=== PATIENT | female | born 1980 | race Caucasian/White ===

== ENCOUNTER → 2019-01-13 | Outpatient (CLI) | payer OTHER ==
--- NOTE | 2019-01-13 12:53 | RADIOLOGY REPORT (SQ) ---
EXAM DESCRIPTION: LUMBAR SPINE COMPLETE COMPLETED DATE/TIME: 01/13/2019 10:00 am REASON FOR STUDY: LEFT LUMBAR RADICULOPATHY M54.16 RADICULOPATHY, LUMBAR REGION COMPARISON: None. NUMBER OF VIEWS: Five views including obliques. TECHNIQUE: AP, lateral, oblique, and sacral radiographic images acquired of the lumbar spine. LIMITATIONS: None. FINDINGS: MINERALIZATION: Normal. SEGMENTATION: Normal. No transitional anatomy. ALIGNMENT: Normal. VERTEBRAE: Maintained height. No fracture or worrisome bone lesion. DISCS: T11-12 degenerative disc disease. POSTERIOR ELEMENTS: Pedicles and facets are intact. No pars defect or posterior arch defects. HARDWARE: None in the spine. PARASPINAL SOFT TISSUES: Normal. PELVIS: Intact as visualized. No fractures or worrisome bone lesions. SI joints intact. OTHER: No other significant finding. IMPRESSION: T11-12 degenerative disc disease. Otherwise normal. TECHNICAL DOCUMENTATION: JOB ID: [id number] [employer]- All Rights Reserved Reading location - IP/workstation name: [email or web address]
== END ==
LOC: OD 09:41
PROVIDERS: ATTEND Family Medicine
DX: M51.16 Intervertebral disc disorders with radiculopathy, lumbar region (principal)
CPT/HCPCS: 72110

== ENCOUNTER 2020-08-31 07:30 | Day surgery (SDC) | payer OTHER ==
[~2020-08-31 07:30] MED LIST: CEFAZOLIN 2 GM/D5W RTU 2 GM/50 ML RTUPB IV PRN
[2020-08-31] MEDS ORDERED: COCAINE HCL 4% TOPICAL SOLN 4 ML ONE (08:21)
[2020-08-31] MEDS ORDERED: OXYMETAZOLINE HCL 0.05% NASAL SPRAY 15 ML BOTTLE ONE ×2 (08:21→11:07)
[2020-08-31] MEDS ORDERED: LIDOCAINE 2%/EPINEPHRINE INJ 1.7 ML CARTRIDGE ONE ×2 (08:22→09:00)
[2020-08-31] MEDS ORDERED: FENTANYL CITRATE INJ/PF 250 MCG/5 ML AMPULE ONE (08:25)
[2020-08-31] MEDS ORDERED: MIDAZOLAM 2 MG/2 ML INJ ONE (08:25)
[2020-08-31] MEDS ORDERED: ONDANSETRON HCL INJ/PF 4 MG/2 ML SDV ONE ×2 (08:25→14:11)
[2020-08-31] MEDS ORDERED: NEOSTIGMINE METHYLSULFATE 10 MG/10 ML VIAL ONE (08:25)
[2020-08-31] MEDS ORDERED: SUCCINYLCHOLINE CHLORIDE INJ 200 MG/10 ML VIAL ONE (08:26)
[2020-08-31] MEDS ORDERED: EPHEDRINE SULFATE INJ 50 MG/1 ML AMPULE ONE (08:26)
[2020-08-31] MEDS ORDERED: ROCURONIUM BROMIDE INJ 50 MG/5 ML VIAL IV ONE (08:26)
[2020-08-31] MEDS ORDERED: DEXAMETHASONE SOD PHOSPHATE INJ 4 MG/1 ML VIAL ONE (08:26)
[2020-08-31] MEDS ORDERED: PROPOFOL INJ 200 MG/20 ML VIAL IV ONE (08:26)
[2020-08-31] MEDS ORDERED: POVIDONE-IODINE 5% OPH PREP SOLN 30 ML ONE (08:33)
[2020-08-31] MEDS ORDERED: PROMETHAZINE HCL INJ 25 MG/1 ML VIAL ONE (14:11)
[2020-08-31] MEDS: HYDROMORPHONE HCL INJ/PF 2 MG/ML AMPULE ONE ×2 (14:15→14:35)
--- NOTE | 2020-08-31 14:53 | Operative Report ---
Operative Report-[facility] Operative Report: Date: 31 August 2020 History: 40-year-old female with a history of nasal trauma resulting in external nasal deformity, nasal dyspnea, inferior turbinate hypertrophy, deviated nasal septum, external nasal valve collapse and a left facial mass. The external nasal deformity is resulting in nasal dyspnea secondary to poor tip support, over projection of the nasal tip and drooping of the tip. Presents today for an external approach to a functional septorhinoplasty, inferior turbinate reduction, repair of vestibular stenosis and excision left facial mass. Informed consent was obtained from the patient. Preoperative Diagnosis: 1. External Nasal Deformity 2. Deviated Nasal Septum 3. Inferior turbinate hypertrophy 4. Nasal Vestibular Stenosis 5. Left facial mass Postoperative diagnosis: Same as above Procedure: 1. External approach to functional rhinoplasty (CPT - 39029) 2. Septoplasty [CPT: 20719] 3. Inferior turbinate reduction, right [CPT: 31078] 4. Inferior turbinate reduction, left [CPT: 19297] 5. Repair nasal vestibular stenosis, right (CPT - 62331) 6. Repair nasal vestibular stenosis, right (CPT - 41126) 7. Excision left facial mass/neoplasm [CPT:29152] Surgeon: Scott Adam MD, FACS, [facility] Anesthesia: GETA Description of the procedure: After receiving informed consent from the patient, patient was taken to the operating room and placed supine on the operating room table. After successful induction and intubation by anesthesia, cottonoids saturated with 4% cocaine were placed into each nasal cavity for approximately 5 minutes. The cottonoids were removed and then the nasal septum along with the inferior turbinates and external nose were injected with 2% lidocaine with 1-100,000 epinephrine. The pledgets were replaced. The incision was marked over the left facial mass and infiltrated with 2% lidocaine with 100,000 epinephrine.. The patient was prepped and draped in a sterile fashion. Attention was then directed to the left facial mass excision. A #15 blade was used to make an incision over the previously marked area. This incision was taken down through the subcutaneous tissues where the facial mass was encountered. Using sharp and blunt dissection the mass was dissected free from surrounding tissue. The mass measured about 1 5 mm in diameter. Hemostasis was obtained using bipolar cautery. The wound was then irrigated with saline. The wound was closed with 1 dermal suture of 5-0 Monocryl and interrupted 7-0 Prolene. Attention was then directed to the nasal portion of the procedure. The pledgets were removed. A marking pen was used to make an inverted V at the mid columellar level. An 11 blade was used to incise this inverted V incision, careful not to incise the underlying medial marcela. A 15 blade were used to make caudal incisions on either side of the columellar at the caudal edge of the medial crura. Andrews scissors were used to elevate the skin envelope off the caudal edge of the medial crura connecting both sides. The medial edge of the left medial crura was identified and using the Andrews scissors and skin hooks a marginal incision was incised along the caudal edge of the lower lateral cartilages laterally to the edge of the lateral marcela. A similar procedure was done on the right side thus elevating the skin envelope over the lower lateral cartilages. The dissection was continued over the nasal dorsum, exposing the upper lateral cartilages and nasal bones. The medial crura were using Andrews scissors then a mucoperichondrial/periosteal flap elevated on the left side onto the nasal floor and back to the sphenoid rostrum. Mucoperichondrial flap was elevated on the right side, to the sphenoid rostrum, exposing the osteocartilaginous septum. The osseocartilaginous junction was and a mucoperiosteal flap was elevated on the right side. Vila scissors were used to make horizontal cuts in the perpendicular plate of the ethmoid bone, superiorly and inferiorly. [place]-Cartwright forceps were used to remove this. A vomeroethmoid spur was identified and the mucosa was carefully dissected from it. A V-chisel was used to remove this spur. An inferior cartilage spur was removed using a D knife . Maxillary crest spur was removed using a V chisel. Lloyd-Stephen's were used to remove a high septal deflection in the area of the internal nasal valve. The septum was viewed with the flaps in place and found to be relatively straight. The middle turbinates were visible on both sides. Attention was then turned to the lower lateral cartilages where cephalic strips were excised bilateral, leaving 7 mm strut bilaterally. Lateral crural overlay technique was then performed to increase tip rotation and decreased tip projection. A caliper was used to measure 10 mm laterally from the dome. Using Andrews scissors the vestibular skin was carefully dissected from the overlying cartilage on the right side. The lateral crura was then transected using Andrews scissors. The medial portion of the lateral crura was advanced laterally to overlie the lateral portion by approximately 5 mm. The cartilages were then secured with 2 mattress sutures of 6-0 clear nylon. A similar procedure was performed on the left side. This resulted in an increase in tip rotation resulting in an increase in the nasal labial angle and it resulted in a decrease in tip projection. This also alleviated the droopy tip. A columellar strut, fashioned from the previously harvested septal cartilage was placed in a pocket between the medial crura. This was secured with a 4-0 plain gut suture. The lateral edges of the medial crura were then secured with 6 0 clear nylon. Dome sutures were placed using 60 clear nylon. The skin envelope was then placed over the cartilages and the nose was viewed. The nasolabial angle was increased and the tip projection was decreased. The tip support was firm. The mid columellar incision was then closed using 7-0 Prolene. The marginal incisions were closed using 4-0 chromic. A 4-0 plain gut whip stitch was used to secure the septal flaps. The external nasal vestibular stenosis was repaired using the YOOWALK nasal airway remodeling system. Handpiece was placed at the caudal edge of the left upper lateral cartilage superiorly and the unit activated. This was then performed to more times moving inferiorly along the upper lateral cartilage towards the piriform aperture. A similar procedure was done on the right side. Inferior turbinate reduction was performed using the Celon turbinate system and the turbinate microdebrider. Intramural cauterization along with removal of submucosal tissue using the microdebrider was performed on the left inferior turbinate and then this turbinate was medialized and lateralized using a Sayer elevator. The procedure was done on the right side. Septal splints coated in bacitracin were placed into each nasal cavity and secured with a 2-0 Prolene on an FS2 needle. Cottonoids saturated in Afrin were then placed into each nasal cavity and secured at the front. These will be removed in the PACU prior to patient discharge. Mastisol, Steri-Strips and a cast applied over the dorsum of the nose. The patient tolerated the procedure well without any complications. Estimated blood loss: 25 mL Fluids: 1800 mL Patient was then given back to anesthesia who successfully extubated the patient without any complications. The patient was transported to the postanesthesia care unit in stable condition with spontaneous respirations.
== END 2020-08-31 16:11 | disposition home or self-care (01) ==
LOC: SC 07:30
PROVIDERS: ATTEND Otolaryngology
DX: J34.2 Deviated nasal septum (principal); L72.0 Epidermal cyst; J34.3 Hypertrophy of nasal turbinates; M95.0 Acquired deformity of nose; J34.89 Other specified disorders of nose and nasal sinuses; J30.9 Allergic rhinitis, unspecified; Z03.818 Encounter for observation for suspected exposure to other biological agents ruled out
CPT/HCPCS: 87635; 88304 ×2; 00160; 30420; 30140; 11442; J2250; J3490 ×4; C9046; J1100; J3010; J2710; J1170; J2550; J0330; J2405; J2704; J0690; C9803; 160